=== PATIENT | female | born 1960 | race Caucasian/White ===

== ENCOUNTER 2017-12-27 07:25 | Day surgery (SDC) | payer MEDICARE ==
[2017-12-22 11:52] LABS: HEMATOCRIT 45.6 % (36.0-48.0); HEMOGLOBIN 14.6 g/dL (12-16); MCH 29.1 pg (26.0-34.0); MEAN PLATELET VOLUME 11.6 fL (7.4-10.4); RBC 5.01 10x6/uL (4.00-5.40); RDW 13.4 % (11.5-14.5); WBC 5.6 10x3/uL (4.8-10.8)
[2017-12-26 15:23] LABS: BASOPHILS 0.7 % (0-2); EOSINOPHILS 2.3 % (0-7); HEMATOCRIT 44.5 % (36.0-48.0); HEMOGLOBIN 14.3 g/dL (12-16); IMMATURE GRANULOCYTES 0.2 % (0-5); LYMPHOCYTES 33.8 % (15-50); MCH 29.8 pg (26.0-34.0); MCHC 32.1 g/dL (31.0-37.0); MCV 92.7 fL (80.0-100.0); MEAN PLATELET VOLUME 11.9 fL (7.4-10.4); MONOCYTES 7.7 % (2-11); NEUTROPHILS 55.3 % (40-80); PLATELET COUNT 197 10x3/uL (130-400); WBC 5.7 10x3/uL (4.8-10.8)
[2017-12-26 15:37] LABS: ANION GAP 14.7 mmol/L (8-16); CALCIUM 8.6 mg/dL (8.5-10.1); CARBON DIOXIDE 27.3 mmol/L (21.0-32.0); CREATININE - SERUM 0.9 mg/dL (0.6-1.3)
[~2017-12-27] VITALS: Ht 172.7 cm; Wt 99.8 kg
[~2017-12-27 07:25] MED LIST: MOBIC7.5 MG PO; NEXIUM40 MG PO; OXYBUTYNIN CHLOR5 MG PO; PROZAC40 MG PO; ZOCOR80 MG PO
[2017-12-27 08:34] VITALS: BP 191/104; Ht 172.7 cm; Wt 99.8 kg
== END 2017-12-27 14:57 | disposition home or self-care (01) ==
LOC: D.OPS 07:25 → D.PAN 09:30 → D.OPS 09:30
PROVIDERS: Anesthesiology; Orthopaedic Surgery
DX: M65.321 Trigger finger, right index finger (principal); Z01.812 Encounter for preprocedural laboratory examination

== ENCOUNTER → 2018-04-05 10:42 | Outpatient (CLI) | payer MEDICARE ==
[2017-12-27 08:34] VITALS: BMI 33.5
[~2018-04-05 10:42] MED LIST changes: +BAYER CHEWABLE81 MG PO; +DIOVAN320 MG PO; +HYDROCHLOROTH12.5 M1 PO; +PLAVIX75 MG PO
--- NOTE | 2018-04-10 10:45 | ST ---
PATIENT:WINTER MARTINEZ MEDICAL RECORD: [id number] SEX: F LOCATION:[facility] ORDER #: ADMISSION DATE: 04/05/18 AGE OF PATIENT: 57 REFERRING PHYSICIAN: INTERPRETING PHYSICIAN: CLARY ZAIDI MD DATE OF SERVICE: 04/05/2018 DIAGNOSES: 1. Angina. 2. Shortness of breath. 3. Hypertension. 4. Hyperlipidemia. The patient was exercised on standard Lexiscan protocol with 33 mCi of sestamibi injected at peak stress. Rest images were done previously with 11 mCi. FINDINGS: 1. Gated SPECT reveals decreased ejection fraction at 38% with mild LV dilatation. 2. SPECT imaging: Cardiolite was used as myocardial perfusion agent. There is definite reversible changes laterally. This includes basal, mid, and apical lateral segments. OVERALL IMPRESSION: This is an abnormal nuclear stress test, reversible changes laterally, cardiomyopathy with ejection fraction 38%, suggestive of coronary artery disease and possibly multivessel coronary artery disease. We will proceed with coronary angiography as a followup study. TRANSINT:[id number] Voice Confirmation ID: [id number] DOCUMENT ID: [id number] CLARY ZAIDI MD at 1045 CC: [id number] DICTATION DATE: 04/06/18 1023 EPIC ANALYST: 04/07/18 0007 DEP CLI 04/05/18 [place] [address] [place] [address]
== END | disposition home or self-care (01) ==
LOC: D.HCCARDIO 10:42
DX: R06.02 Shortness of breath (principal)

== ENCOUNTER 2018-04-13 08:31 | Outpatient (CLI) | payer MEDICARE ==
[~2018-04-13] VITALS: Ht 172.7 cm; Wt 113.6 kg
--- NOTE | ~2018-04-13 | HEMODYNAMI ---
PATIENT:WINTER MARTINEZ MEDICAL RECORD: [id number] : 58 LOCATION:[facility] ADMISSION DATE: 04/13/18 Generatedon:04/13/201813:17 Patient name: WINTER MARTINEZ Patient #: [id number] SSN: : [birth year] Date of study: 04/13/2018 Page: Of Hemodynamic Procedure Report Patient Data Patient Demographics Procedure consent was obtained First Name: WINTER Gender: Female Last Name: JUAN : 1960 [facility] Initial: ZUNILDA Age: 57 year(s) Patient #: [id number] Race: Unknown Additional ID: [id number] Contact details Address: [address] [place] [address] State: [place] City: [place] Zip code: [address] Past Medical History Allergies: No known allergies Admission Admission Data Admission Date: 04/13/2018 Admission Time: 8:31 Height (in.): 65 BSA: 2.16 (m2) Height (cm.): 165.1 BMI: 41.1 (kg/m2) Weight (lbs.): 247 Weight (kg.): 112.04 Lab Results Lab Result Date: 04/13/2018 Lab Result Time: 0:00 Biochemistry Name Units Result Min Max BUN mg/dl 29 --(----)-* 7 18 Creatinine mg/dl 1.1 --(--*-)-- 0.6 1.3 CBC Name Units Result Min Max Hematocrit % 45.5 --(-*--)-- 42 54 Hemoglobin g/dl 15 --(-*--)-- 13.5 17.5 Procedure Procedure Types Cath Procedure Diagnostic Procedure [facility] w/Coronaries FFR/IVUS Intra-Coronary IVUS Initial Sedation Charges Moderate Sedation up to 15 minutes PCI Procedure Coronary Stent Coronary Stent Initial Procedure Description Procedure Date Procedure Date: 04/13/2018 Procedure Start Time: 12:55 Procedure End Time: 13:15 Procedure Staff Name Function Javed Isabel MD Performing Physician Austyn Carrillo RT Monitor Blessing Lennon RT Scrub Chase Schulz RN Nurse Denis Cm RT Luggage Liner Procedure Data Cath Procedure Fluoroscopy Diagnostic fluoroscopy Total fluoroscopy Time: 6.2 time: 6.2 min min Diagnostic fluoroscopy Total fluoroscopy dose: dose: 1140 mGy 1140 mGy Contrast Material Contrast Material Type Amount (ml) Isovue 300 90 Entry Location Entry Primary Successful Side Size Upsize Upsize Entry Closure Jackson ccessful Closure Location (Fr) 1 (Fr) 2 (Fr) Remarks Device Remarks Radial Right 6 Fr Mechanical artery Short Compression Femoral Right 5 Fr 6 Fr Exoseal artery Short Estimated blood loss: 10 ml Diagnostic catheters Device Type Used For End Catheter Placement DIAGNOSTIC [place] 110cm 5 Procedure Fr catheter ([id number]) MULTIPACK Pigtail 5 Fr Procedure catheter MULTIPACK JL 4.0 5Fr Procedure catheter MULTIPACK 3DRC 5Fr Procedure catheter Procedure Complications No complications Procedure Medications Medication Administration Route Dosage Oxygen etCO2 Nasal cannula 2 l/min Lidocaine 2% added to field 20 Heparin Flush Bag added to field 2 bags (1000units/500ml NS) 0.9% NaCl I.V. 100 ml/hr Radial Cocktail I.A. 1 syringe (Verapomil 2mg/Nitro 400mcg/Heparin 1500units) Versed I.V. 2 mg Fentanyl I.V. 100 mcg Versed I.V. 2 mg Fentanyl I.V. 100 mcg Heparin Bolus I.V. 4000 units Integrilin (Bolus I.V. 10.2 ml 2mg/ml) Plavix P.O. 600 mg Versed I.V. 1 mg Hemodynamics Rest BSA: 2.16 (m2) HGB: 15 (g/dl) O2 Consumption: Estimated: 200.81 (ml/min) O2 Cons umption indexed: Estimated:92.97 (ml/min/m) Heart Rate: 64 (bpm) Snapshots Pre Cath Intra NCS Post Cath Vital Signs Time Heart Resp SPO2 etCO2 NIBP (mmHg) Rhythm Pain Sedation Rate (ipm) (%) (mmHg) Status Level (bpm) 12:42:25 54 10 100 0 160/86(137) NSR 0 (11) 10(A) , No pain 12:46:50 57 17 99 38.7 166/84(137) NSR 0 (11) 10(A) , No pain 12:51:10 59 23 94 28.2 120/81(95) NSR 0 (11) 10(A) , No pain 12:55:28 60 15 97 37.2 126/69(88) NSR 0 (11) 9(A) , No pain 12:59:36 63 12 95 32.7 104/74(90) NSR 0 (11) 9(A) , No pain 13:03:50 66 16 96 15.6 117/62(92) NSR 0 (11) 9(A) , No pain 13:08:08 64 17 97 37.9 113/65(96) NSR 0 (11) 9(A) , No pain 13:12:18 63 20 97 34.9 105/67(90) NSR 0 (11) 9(A) , No pain 13:16:32 62 17 99 35.6 104/65(84) NSR 0 (11) 10(A) , No pain Medications Time Medication Route Dose Verified Delivered Reason Not es Effectiveness by by 12:46:22 Oxygen etCO2 2 l/min Javed Stone used for Nasal Maame Schulz RN procedure cannula 12:46:29 Lidocaine 2% added 20ml Javed Burt for local to vial Maame Isabel MD anesthetic field 12:46:34 Heparin Flush added 2 bags Javed Burt used for Bag to Maame Isabel MD procedure (1000units/500ml field NS) 12:46:45 0.9% NaCl I.V. 100 Javed Stone Per physician ml/hr Maame Schulz RN 12:50:31 Versed I.V. 2 mg Javed Stone for sedation Maame Schulz RN 12:50:37 Fentanyl I.V. 100 mcg Javed Manjarrezie for sedation Maame Schulz RN 12:55:52 Radial Cocktail I.A. 1 Javed Javed for (Verapomil syringe Maame Isabel MD vasodilation 2mg/Nitro 400mcg/Heparin 1500units) 12:55:58 Versed I.V. 2 mg Javed Buffie for sedation Maame Schulz RN 12:56:01 Fentanyl I.V. 100 mcg Javed Stone for sedation Maame Schulz RN 13:00:53 Versed I.V. 1 mg Javed Manjarrezie for sedation Maame Schulz RN 13:07:36 Heparin Bolus I.V. 4000 Javed snow kamala ified units Maame Schulz RN anticoagulation with dr isabel 13:09:43 Integrilin I.V. 10.2 ml Javed snow was graeme (Bolus 2mg/ml) Maame Schulz RN antiplatelet 9.8 ml therapy of vial 13:13:29 Plavix P.O. 600 mg Javed Schulz RN antiplatelet therapy Procedure Log Time Note 12:27:53 Signed procedure consent form obtained from patient. 12:27:55 Time tracking: Regular hours (M-F 7:00 - 5:00) 12:27:59 Plan of Care:Hemodynamics will remain stable., Cardiac rhythm will remain stable., Comfort level will be maintained., Respiratory function will remain adequate., Patient/ family verbilizes understanding of procedure., Procedure tolerated without complication., Recovers from procedure without complications.. 12:28:01 Diagnostic Cath status Elective 12:28:24 Chase Schulz RN sent for patient. Start room use. 12:29:50 H&P Date Dictated: 03/28/2018 Within 30 days and on chart., H&P Addendum completed by physician on day of procedure. (MUST COMPLETE FOR ALL OUTPATIENTS). 12:29:55 Patient allergic to No known allergies 12:31:05 Lab Result : BUN 29 mg/dl 12:31:05 Lab Result : Creatinine 1.1 mg/dl 12:31:05 Lab Result : Hemoglobin 15 g/dl 12:31:05 Lab Result : Hematocrit 45.5 % 12:31:15 Patient Height : 65 inches 12:31:17 Patient Weight : 247 lbs 12:34:00 Patient received from Pre/Post Procedure Room to CCL 2 Alert and oriented. Tansferred to table in Supine position. 12:34:01 Warm blankets applied, and brooke hugger turned on for patient comfort. 12:34:02 Correct patient and procedure confirmed by team. 12:34:02 ECG and BP/O2 sat monitors applied to patient. 12:41:08 Vital chart was started 12:46:22 Oxygen 2 l/min etCO2 Nasal cannula was administered by Chase Schulz RN; used for procedure; 12:46:29 Lidocaine 2% 20ml vial added to field was administered by Javed Isabel MD; for local anesthetic; 12:46:34 Heparin Flush Bag (1000units/500ml NS) 2 bags added to field was administered by Javed Isabel MD; used for procedure; 12:46:45 0.9% NaCl 100 ml/hr I.V. was administered by Chase Schulz RN; Per physician; 12:47:23 Baseline sample Acquired. 12:47:26 Rhythm: sinus rhythm 12:47:28 Full Disclosure recording started 12:47:29 Pre-procedure instructions explained to patient. 12:47:29 Pre-op teaching completed and patient verbalized understanding. 12:47:31 Family in waiting room. 12:47:32 Patient NPO since Midnight. 12:47:34 Is the patient allergic to Iodine/contrast media? No. 12:47:36 Is patient on blood thinner?No 12:47:37 Patient diabetic? No. 12:47:40 Previous problem with sedation/anesthesia? No ? 12:47:40 Snore? Yes 12:47:41 Sleep apnea? Yes 12:47:42 Deviated septum? No 12:47:43 Opens mouth fully? Yes 12:47:44 Sticks out tongue? Yes 12:47:45 Airway obstruction? No ? 12:47:46 Dentures? No ? 12:47:49 Modified Adi's test Ulnar < 7 seconds 12:47:50 Patient pain scale 0/10 ?. 12:47:53 IV patent on arrival in right hand with 0.9% NaCl at [facility]. 12:47:55 Lab results completed and on chart. 12:47:57 Right Radial & Right Groin area was prepped with chlora-prep and draped in sterile fashion 12:47:58 Alarms reviewed by R. N. 12:47:58 Sharps counted by scrub and verified by R.N. 12:48:04 Use device set Radial Dx or PCI 12:48:05 ACIST Syringe (96821) opened to sterile field. 12:48:06 Medline Cath Pack ([id number]) opened to sterile field. 12:48:06 Bag Decanter () opened to sterile field. 12:48:07 ACIST Hand Control (44069) opened to sterile field. 12:48:07 ACIST Manifold (54011) opened to sterile field. 12:48:08 Tegaderm 4 x 4 (1626W) opened to sterile field. 12:48:08 MBrace Wrist Support ([id number]) opened to sterile field. 12:48:09 SHEATH 6FR Slender (65-1701) opened to sterile field. 12:48:10 DIAGNOSTIC WIRE .035 260cm J wire (143730) opened to sterile field. 12:48:18 Physician arrived 12:48:18 --------ALL STOP TIME OUT------ 12:48:18 Final Timeout: patient, procedure, and site verified with staff and physician. All members of the team are in agreement. 12:48:23 Right Radial & Right Groin site verified by team. 12:48:25 Fire Safety Assessment: A--An alcohol-based skin anteseptic being used preoperatively., C--Open oxygen or nitrous oxide is being used., D--An ESU, laser, or fiber-optic light is being used. 12:48:27 Physical assessment completed. ASA score P 2 - A patient with mild systemic disease as per Javed Isabel MD. 12:48:29 Sedation plan: IV Moderate Sedation Medication:Versed, Fentanyl 12:50:31 Versed 2 mg I.V. was administered by Chase Schulz RN; for sedation; 12:50:37 Fentanyl 100 mcg I.V. was administered by Chase Schulz RN; for sedation; 12:55:04 Procedure started. 12:55:07 Local anesthetic to right radial artery with Lidocaine 2% by Javed Isabel MD.INITIAL ACCESS ONLY 12:55:16 A 6 Fr Short sheath was inserted into the Right Radial artery 12:55:52 Radial Cocktail (Verapomil 2mg/Nitro 400mcg/Heparin 1500units) 1 syringe I.A. was administered by Javed Isabel MD; for vasodilation; 12:55:58 Versed 2 mg I.V. was administered by Chase Schulz RN; for sedation; 12:56:00 Local anesthetic to right femoral artery with Lidocaine 2% by Javed Isabel MD.ADDITIONAL ACCESS 12:56:01 Fentanyl 100 mcg I.V. was administered by Chase Schulz RN; for sedation; 12:56:09 A 5 Fr sheath was inserted into the Right Femoral artery 12:56:14 Sheath upsized to a 6 Fr Short. 12:56:21 6 Fr ebu 3.5 guide catheter was inserted over the wire 12:57:25 A DIAGNOSTIC [place] 110cm 5 Fr catheter ([id number]) was advanced over the wire and used for Procedure. 12:57:37 Catheter removed. unable to cannulate vessel. 12:57:52 SHEATH 5FR [place] (YSP017) opened to sterile field. 12:58:05 Use device set Multipack Set 12:58:06 DIAGNOSTIC Multipack 5Fr catheter set ([id number]) opened to sterile field. 12:58:47 A MULTIPACK Pigtail 5 Fr catheter was advanced over the wire and used for Procedure. 12:59:23 LV gram done using SOTO 12:59:25 Injector settings: Ml/sec: 10, Volume: 20, 12:59:27 LV hemodynamics recorded. 12:59:44 EF : 55 % 12:59:45 Catheter exchanged over wire. 12:59:50 A MULTIPACK JL 4.0 5Fr catheter was advanced over the wire and used for Procedure. 13:00:25 LCA angiography performed. 13:00:53 Versed 1 mg I.V. was administered by Chase Schulz RN; for sedation; 13:01:19 Catheter exchanged over wire. 13:01:48 A MULTIPACK 3DRC 5Fr catheter was advanced over the wire and used for Procedure. 13:02:12 CHOICE PT Extra Support 182cm wire ([id number]) opened to sterile field. 13:02:13 INFLATOR Merit BasixCompak (AU8668) opened to sterile field. 13:02:13 [place] IVUS Catheter (81160D) opened to sterile field. 13:02:17 SHEATH 6FR [place] (IFH184) opened to sterile field. 13:03:35 GUIDE 6FR EBU 3.5 catheter ([id number]) opened to sterile field. 13:03:40 Catheter removed. 13:04:26 choice pt es wire advanced. 13:04:28 Wire advanced across lesion. 13:05:02 TR BAND Standard ([id number]) opened to sterile field. 13:06:01 IVUS catheter advanced over wire. 13:06:07 IVUS pass to LAD lesion performed. 13:07:36 Heparin Bolus 4000 units I.V. was administered by Chase Schulz RN; for anticoagulation; verified with dr isabel 13:08:01 IVUS catheter removed over wire. 13:09:43 Integrilin (Bolus 2mg/ml) 10.2 ml I.V. was administered by Chase Schulz RN; for antiplatelet therapy; wasted 9.8 ml of vial 13:10:27 Place stent Inflation Number: 1 A INTEGRITY RX 3.5 x 26 stent ([id number]) was prepped and advanced across the Prox LAD. The stent was deployed at 15 ZINA for 0:10 (min:sec). 13:10:42 Stent catheter was removed intact over wire. 13:10:44 Wire removed. 13:10:44 Guide catheter removed. 13:10:59 EXOSEAL 6Fr (EX600) opened to sterile field. 13:11:07 Sheath removed intact; hemostasis achieved with Exoseal to the Right Femoral artery. 13:11:11 Sheath removed intact; hemostasis achieved with Mechanical Compression to the Right Radial artery. 13:11:13 Procedure ended.(Physican Out) 13:13:29 Plavix 600 mg P.O. was administered by Chase Schulz RN; for antiplatelet therapy; 13:14:09 Fluoroscopy time 06.20 minutes. 13:14:12 Flurop Dose total: 1140 13:14:13 Fluoroscopy dose: 1140 mGy 13:14:16 Contrast amount:Isovue 300 90ml. 13:14:17 Sharps counted by scrub and verified by R.N. 13:14:20 TR band inflated with 10cc of air. 13:14:20 Insertion/operative site no bleeding no hematoma. 13:14:22 Post-op/insertion site Right Femoral artery dressed using a 4 x 4 and Tegaderm. 13:14:30 Post right femoral artery:stable, soft, clean and dry 13:14:35 Post right radial artery:stable, soft, clean and dry 13:14:36 Post Procedure Pulses reassessed and unchanged 13:14:38 Post-procedure physical assessment completed. ASA score P 2 - A patient with mild systemic disease as per Javed Isabel MD. 13:14:39 Post procedure rhythm: unchanged. 13:14:41 Estimated blood loss: 10 ml 13:14:43 Post procedure instruction explained to patient.Patient verbalizes understanding. 13:14:43 Patient needs reinforcement of post procedure teaching. 13:15:09 Procedure type changed to Cath procedure, Diagnostic procedure, LHC, LHC w/Coronaries, FFR/IVUS, Intra-Coronary IVUS Initial, Sedation Charges, Moderate Sedation up to 15 minutes, PCI procedure, Coronary Stent, Coronary Stent Initial 13:15:38 Procedure and supply charges have been captured, reviewed, submitted and are correct. 13:15:40 Procedure Complication : No complications 13:15:41 Vital chart was stopped 13:15:42 See physician's report for complete and final results. 13:15:43 Report given to Pre/Post Procedure Room. 13:15:45 Patient transfered to Pre/Post Procedure Room with Stretcher. 13:15:46 Procedure ended. 13:15:46 Full Disclosure recording stopped 13:15:50 End room use (Document Last) Intervention Summary Intervention Notes Time ActionType Lesion and Equipment Action# Pressure Duration Attributes Used 13:10:27 Place stent Prox LAD INTEGRITY RX 1 15 00:10 3.5 x 26 stent ([id number]) Device Usage Item Name Manufacture Quantity Catalog Number Hospital Part Current Mini mal Lot# / Charge Number Stock Stock Serial# Code ACIST Acist 1 57821 127365 170553 425473 20 Syringe Medical (44264) Systems Inc Medline Cath Medline 1 [id number] 149456 84052 362763 5 Pack ([id number]) Bag Decanter Microtek 1 2002S 827675 68427 578385 5 (2001S) Medical Inc. ACIST Hand Acist 1 42471 818779 067891 846621 5 Control Medical (81055) Systems Inc ACIST Acist 1 12067 300128 508753 878711 5 Manifold Medical (95944) Systems Inc Tegaderm 4 x 3M 1 1626W 920106 859619 286004 5 4 (1626W) MBrace Wrist Advanced 1 140-0250-00 263408 18908 425822 5 Support Vascular ([id number]) Dynamics SHEATH 6FR Terumo 1 [id number] 103164 195004 438647 5 Slender (80-1060) DIAGNOSTIC St Evan 1 125183 450054 130699 034669 30 WIRE .035 260cm J wire (908096) DIAGNOSTIC Terumo 1 40-8103 541770 815932 826595 5 [place] 110cm 5 Fr catheter (157303) SHEATH 5FR Terumo 1 CJO122 229304 011060 448345 5 [place] (TYJ187) DIAGNOSTIC Cardinal 1 XR2969 150427 95677 740056 30 Multipack Health 5Fr catheter set (YR9571) MULTIPACK Cardinal 1 327541 5 Pigtail 5 Fr Health catheter MULTIPACK JL Cardinal 1 529789 5 4.0 5Fr Health catheter MULTIPACK Cardinal 1 350552 5 3DRC 5Fr Health catheter CHOICE PT Collins 1 [id number] 257811 057369 134447 5 Extra Scientific Support 182cm wire ([id number]) INFLATOR Merit 1 KC6815 016851 228668 372484 15 Merit Medical BasixCompak (UR6567) [place] 1 74092C 389029 572314 626883 8 [place] IVUS Catheter (59746W) SHEATH 6FR Terumo 1 VNF768 021748 901038 177703 40 [place] (IFT966) GUIDE 6FR Medtronic 1 [id number] 961968 81709 550880 3 EBU 3.5 catheter (OA3DTG12) INTEGRITY RX Medtronic 1 [id number] 423257 382483 003482 5 [id number] 3.5 x 26 stent ([id number]) EXOSEAL 6Fr Cardinal 1 EX600 878787 215681 387713 10 (EX600) Health TR BAND Terumo 1 BGM65-WVV 850891 922672 849690 40 Standard ([id number]) Signature Audit [place] Stage Time Signature Unsigned Intra-Procedure 04/13/2018 Austyn Carrillo 1:17:33 PM RT(R) Signatures Monitor : Austyn Carrillo RT Signature : Date : Time : [facility] [address] [place] [address]
[~2018-04-13 08:31] MED LIST changes: -BAYER CHEWABLE81 MG PO; -DIOVAN320 MG PO; -HYDROCHLOROTH12.5 M1 PO; -PLAVIX75 MG PO
[2018-04-13] MEDS ORDERED: DIOVAN320 MG PO (08:52)
[2018-04-13] MEDS ORDERED: HYDROCHLOROTH12.5 M1 PO (08:52)
[2018-04-13 09:10] VITALS: BP 151/79; Ht 172.7 cm; Wt 113.6 kg
[2018-04-13 09:25] LABS: BASOPHILS 0.9 % (0-2); EOSINOPHILS 3.5 % (0-7); HEMATOCRIT 46.5 % (36.0-48.0); IMMATURE GRANULOCYTES 1.7 % (0-5); LYMPHOCYTES 23.6 % (15-50); MCH 29.1 pg (26.0-34.0); MCHC 32.3 g/dL (31.0-37.0); MCV 90.1 fL (80.0-100.0); MEAN PLATELET VOLUME 10.7 fL (7.4-10.4); NEUTROPHILS 63.3 % (40-80); PLATELET COUNT 312 10x3/uL (130-400); RBC 5.16 10x6/uL (4.00-5.40); RDW 13.9 % (11.5-14.5); WBC 6.3 10x3/uL (4.8-10.8)
[2018-04-13 09:38] LABS: ANION GAP 16.9 mmol/L (8-16); CALCIUM 9.3 mg/dL (8.5-10.1); CARBON DIOXIDE 27.1 mmol/L (21.0-32.0); CREATININE - SERUM 1.1 mg/dL (0.6-1.3)
--- NOTE | 2018-04-13 13:30 | NUR ---
PT RECEIVED VIA STRETCHER FROM COLLISION TECHNICIAN FOR RECOVERY. PT SLEEPING BUT AROUSABLE TO VERBAL STIMULI. TR BAND TO R WRIST, DRESSING CDI NO BLEEDING OR HEMATOMA NOTED. 6 FR EXOCELE TO R GROIN, DRESSING CDI NO BLEEDING OR SWELLING NOTED. EXTREMITY WARM AND PINK, PEDAL PULSES PALPABLE. HR SINUS AMBROSIO RATE 55, BP 134/69, O2 SAT 100 ON 1L/NC. PT DENIES PAIN OR DISCOMFORT. FAMILY AT BEDSIDE, CALL LIGHT IN REACH. PT INSTRUCTED TO KEEP HEAD ON PILLOW AND LEG STRAIGHT, VERBALIZED UNDERSTANDING.
[2018-04-13] MEDS ORDERED: BAYER CHEWABLE81 MG PO (13:37)
[2018-04-13] MEDS ORDERED: PLAVIX75 MG PO (13:37)
--- NOTE | 2018-04-13 13:45 | NUR ---
PT RESTING QUIETLY, DENIES PAIN OR NAUSEA. REQUESTED SOMETHING TO DRINK, SPRITE GIVEN. R TR BAND IN PLACE, NO BLEEDING OR SWELLING NOTED. R GROIN DRESSING CDI NO BLEEDING OR SWELLING NOTED. CALL LIGHT IN REACH, AT BEDSIDE.
--- NOTE | 2018-04-13 14:15 | NUR ---
PT RESTING COMFORTABLY, TR BAND AND IMMOBILIZER IN PLACE NO BLEEDING OR SWELLING NOTED. R GROIN DRESSING CDI NO BLEEDING OR SWELLING NOTED. PEDAL PULSES PALPABLE. CALL LIGHT IN REACH, AT BEDSIDE.
--- NOTE | 2018-04-13 14:30 | NUR ---
NO CHANGE IN CONDITION, PT RESTING QUIETLY. TR BAND IN PLACE DRESSING CDI NO BLEEDING OR SWELLING NOTED. R GROIN DRESSING CDI NO BLEEDING OR SWELLING.
--- NOTE | 2018-04-13 15:12 | NUR ---
PT RESTING W EYES CLOSED, R GROIN DRESSING REMAINS CDI NO BLEEDING OR SWELLING NOTED, TR BAND IN PLACE NO BLEEDING OR SWELLING NOTED. PT DENIES PAIN OR NEEDS. REMAINS AT BEDSIDE, CALL LIGHT IN REACH
--- NOTE | 2018-04-13 15:30 | NUR ---
PT MORE AWAKE, DENIES PAIN OR DISCOMFORT, HR SINUS AMBROSIO RATE 55, BP 122/76. TR BAND IN PLACE NO BLEEDING OR HEMATOMA NOTED. R GROIN SOFT NO BLEEDING OR SWELLING NOTED. CALL LIGHT IN REACH, DENIES NEEDS AT THIS TIME
--- NOTE | 2018-04-13 15:58 | NUR ---
TR BAND IN PLACE, NO BLEEDING OR SWELLING NOTED. DRESSING CDI. R GROIN SOFT NO BLEEDING OR HEMATOMA NOTED. PT DENIES NEEDS OR DISCOMFORT. CALL LIGHT IN REACH. REPORT TO Alex HUMPHRIES RN TO ASSUME CARE.
--- NOTE | 2018-04-13 16:37 | NUR ---
4 CC AIR REMOVED FROM TR BAND WITH NO BLEEDING OR HEMATOMA NOTED. 6FR EXOSEAL R/GROIN IS CDI REPOSITIONED PATIENT TO SITTING WITH HOB UP 30 FOR COMFORT.SANDWICH AND SODA TO BEDSIDE
--- NOTE | 2018-04-13 16:55 | NUR ---
4 CC AIR REMOVED FROM TR BAND WITH NO BLEEDING NOTED. VERBAL AND WRITTEN DISCHARGE GONE OVER WITH PATIENT
--- NOTE | 2018-04-13 17:16 | NUR ---
PATIENT LEFT VIA WC TO PARKING FOR TRANSPORT HOME WITH . DRESSING TO R/WRIST CDI AND 6 FR EXOSEAL R/GROIN IS CDI. PATIENT DENIED PAIN OR NEEDS NO DISTRESS NOTED
--- NOTE | 2018-04-16 11:46 | OP ---
PATIENT NAME: WINTER MARTINEZ MEDICAL RECORD: [id number] :58 LOCATION:[facility] ADMISSION DATE: SURGEON: CLARY ZAIDI MD DATE OF OPERATION: 04/13/2018 PROCEDURES: 1. PTCA stent LAD. 2. Intravascular ultrasound. 3. Left heart catheterization. 4. Selective coronary angiography. 5. Left ventriculogram. INDICATION: Angina and coronary artery disease. PROCEDURE PERFORMED: After informed consent was obtained and after detailed explanation of risks, benefits as well as alternative therapies, the patient elected to proceed with angiogram and angioplasty. The right radial area was prepped and draped in normal sterile fashion. Right radial artery was cannulated via modified Seldinger technique with placement of 6-Syriac sheath. All catheters exchanged through this sheath. FINDINGS: Left ventriculogram was performed in a standard 30-degree SOTO view reveals good cardiac wall motion throughout all segments. Overall ejection fraction estimated 60%. SELECTIVE CORONARY ANGIOGRAPHY: 1. Left main is with no significant angiographic disease. 2. Left anterior descending has a greater than 70% stenosis confirmed by intravascular ultrasound. 3. Left circumflex has moderate irregularities, but no flow-limiting stenosis. 4. Right coronary has moderate irregularities, but no flow-limiting stenosis. PTCA STENT OF THE LAD: The stent used 3.5 x 26 mm Integrity. Result was 0% residual stenosis. OVERALL IMPRESSION: Successful percutaneous transluminal angioplasty stent of the left anterior descending going from greater than 70% initial stenosis confirmed by intravascular ultrasound to 0% residual. TRANSINT:[id number] Voice Confirmation ID: [id number] DOCUMENT ID: [id number] CLARY ZAIDI MD at 1146 CC: [id number] DICTATION DATE: 04/13/18 1319 ROUTING EQUIPMENT TENDER: 04/13/18 2241 DEP CLI 04/13/18 [place] [id number]
== END 2018-04-13 17:17 | disposition home or self-care (01) ==
LOC: D.CATH 08:31
PROVIDERS: Internal Medicine Interventional Cardiology
DX: I25.119 Atherosclerotic heart disease of native coronary artery with unspecified angina pectoris (principal); Z01.812 Encounter for preprocedural laboratory examination

== ENCOUNTER 2018-06-11 08:00 | Outpatient (CLI) | payer MEDICARE ==
[2018-04-13 09:10] VITALS: BMI 38.1
[~2018-06-11 08:00] MED LIST changes: +BAYER CHEWABLE81 MG PO; +DIOVAN320 MG PO; +HYDROCHLOROTH12.5 M1 PO; +PLAVIX75 MG PO
== END 2018-06-11 09:00 | disposition home or self-care (01) ==
LOC: D.MAMMO 08:00
PROVIDERS: ATTEND Clinical Nurse Specialist Adult Health
DX: Z12.31 Encounter for screening mammogram for malignant neoplasm of breast (principal)

== ENCOUNTER 2018-07-29 17:55 | Inpatient (IN) | payer MEDICARE ==
[2018-07-29 18:21] LABS: BASOPHILS 0.2 % (0-2); EOSINOPHILS 0.5 % (0-7); HEMATOCRIT 46.4 % (36.0-48.0); HEMOGLOBIN 15.2 g/dL (12-16); IMMATURE GRANULOCYTES 0.4 % (0-5); LYMPHOCYTES 12.1 % (15-50); MCH 29.5 pg (26.0-34.0); MCHC 32.8 g/dL (31.0-37.0); MCV 90.1 fL (80.0-100.0); MEAN PLATELET VOLUME 12.2 fL (7.4-10.4); MONOCYTES 5.5 % (2-11); NEUTROPHILS 81.3 % (40-80); RBC 5.15 10x6/uL (4.00-5.40); RDW 14.5 % (11.5-14.5); WBC 9.3 10x3/uL (4.8-10.8)
[2018-07-29 18:26] LABS: PLATELET COUNT 224 10x3/uL (130-400)
[2018-07-29 18:27] LABS: APTT 24.5 SECONDS (22.8-39.4); INR 1.03 (0.85-1.17)
[2018-07-29 18:32] LABS: ALKALINE PHOSPHATASE 71 U/L (46-116); ALT (SGPT) 43 U/L (10-68); BILIRUBIN - TOTAL 0.78 mg/dL (0.2-1.3); CALC OSMOLALITY 295 mosm/kg (275-300); CALCIUM 9.6 mg/dL (8.5-10.1); CARBON DIOXIDE 22.7 mmol/L (21.0-32.0); CHLORIDE - SERUM 107 mmol/L (98-107); CREATININE - SERUM 2.3 mg/dL (0.6-1.3); GLUCOSE 132 mg/dL (74-106); POTASSIUM - SERUM 3.9 mmol/L (3.5-5.1); PROTEIN - SERUM 7.5 g/dL (6.4-8.2); SODIUM 144 mmol/L (136-145); UREA NITROGEN 33 mg/dL (7-18); eGFR NON AFRICAN AMERICAN 23 mL/min (90-120)
[2018-07-29 18:44] LABS: CKMB 0.3 U/L (0.0-3.6); CREATINE KINASE 76 UL (21-215); MAGNESIUM - SERUM 2.1 mg/dL (1.8-2.4)
[2018-07-29 18:48] LABS: TROPONIN-I < 0.017 ng/mL (0.000-0.060)
--- NOTE | 2018-07-29 19:05 | NUR ---
PT RESTING ON BED. PT FAMILY AT BEDSIDE. PT AND FAMILY UPDATED ON PLAN OF CARE.
[2018-07-29 19:49] VITALS: BP 150/59
[2018-07-29 22:13] VITALS: BP 150/59; BMI 38.1
--- NOTE | 2018-07-29 22:21 | NUR ---
RECIEVED REPORT FROM HAZEL PADRON IN ER AT 1940. RECIEVED PT TO FLOOR AT 2013 VIA W/C. ACCOMPANIED BY STAFF AND FAMILY. TRANSFERED SELF TO BED. IV TO RT HAND WITH NS INFUSING AT 125/HR. NO REDNESS OR SWELLING TO SITE. ALERT AND ORIENTED X4. AMBULATES WITHOUT ASSIST. STATES SHE'S LEAGLLY BLIND. CAN SEE SHAPES AND COLORS. UNABLE TO SEE FINE DETAILS. DENIES ANY NEEDS AT THIS TIME.
[2018-07-29 23:18] VITALS: BP 149/60
[2018-07-30 04:14] VITALS: BP 155/58
[2018-07-30 06:30] LABS: ANION GAP 14.9 mmol/L (8-16); CALCIUM 8.5 mg/dL (8.5-10.1); CARBON DIOXIDE 24.9 mmol/L (21.0-32.0); CREATININE - SERUM 1.8 mg/dL (0.6-1.3); POTASSIUM - SERUM 3.8 mmol/L (3.5-5.1)
[2018-07-30 07:40] VITALS: BP 177/59
[2018-07-30 08:54] VITALS: BMI 38.1
[2018-07-30 11:29] VITALS: BP 152/62
[2018-07-30 15:28] VITALS: BP 190/92
--- NOTE | 2018-07-30 16:11 | NUR ---
ALERT AND ORIENTED X4. SITTING UP IN BED. BP-190/92 MANUALLY. NOTIFY JUNIOR RIBEIRO. PATIENT STATES, "WHEN MY BLOOD PRESSURE IS ELEVATED THAT'S WHEN I GET WEAK AND FEEL LIKE I'M GOING TO PASS OUT." ENCOURAGE TO CALL FOR ASSISTANCE WHEN OOB TO PREVENT FALL IF SYCOPAL EPISODE OCCURS. REFUSE SCDs. SINUS AMBROSIO 56 ON TELEMETRY. CONTINUE PLAN OF CARE AND SAFETY PRECAUTIONS.
[2018-07-30 19:55] VITALS: BP 171/65
--- NOTE | 2018-07-30 20:04 | NUR ---
RECIEVED UP IN BED WITH HOB ELEVATED AND TV ON. ALERT AND ORIENTED X4. UP AD RUTHY TO B/R. TELEMETRY IN PLACE. PIV TO RIGHT HAND WITH NS @50CC/HR. DENIES ANY NEEDS AT THIS TIME.
[2018-07-30 23:58] VITALS: BP 170/60
[2018-07-31 01:24] LABS: APPEARANCE CLEAR (CLEAR); BILIRUBIN NEGATIVE (NEGATIVE); COLOR YELLOW (YELLOW); GLUCOSE NEGATIVE (NEGATIVE); KETONE NEGATIVE (NEGATIVE); NITRITE NEGATIVE (NEGATIVE); PROTEIN NEGATIVE (NEGATIVE); UROBILINOGEN NORMAL (NORMAL)
[2018-07-31 04:06] VITALS: BP 162/53
[2018-07-31 06:00] LABS: BASOPHILS 0.5 % (0-2); EOSINOPHILS 3.2 % (0-7); HEMATOCRIT 40.5 % (36.0-48.0); HEMOGLOBIN 13.1 g/dL (12-16); LYMPHOCYTES 40.9 % (15-50); MCH 29.2 pg (26.0-34.0); MCHC 32.3 g/dL (31.0-37.0); MCV 90.4 fL (80.0-100.0); MEAN PLATELET VOLUME 11.6 fL (7.4-10.4); MONOCYTES 5.8 % (2-11); NEUTROPHILS 49.6 % (40-80); RBC 4.48 10x6/uL (4.00-5.40); RDW 13.9 % (11.5-14.5)
[2018-07-31 06:16] LABS: CALCIUM 8.4 mg/dL (8.5-10.1); CARBON DIOXIDE 27.9 mmol/L (21.0-32.0); POTASSIUM - SERUM 3.9 mmol/L (3.5-5.1)
[2018-07-31 06:17] LABS: CREATININE - SERUM 1.2 mg/dL (0.6-1.3)
[2018-07-31 06:31] LABS: PLATELET COUNT 171 10x3/uL (130-400); WBC 4.1 10x3/uL (4.8-10.8)
[2018-07-31 07:28] VITALS: BP 175/65
[2018-07-31 11:39] VITALS: BP 165/90
--- NOTE | 2018-07-31 14:53 | MORECARE ---
CASE MANAGEMENT DISCHARGE SUMMARY PATIENT: WINTER MARTINEZ UNIT: [id number] ADM DATE: 07/30/18 AGE: 58 : 58 SEX: F ROOM/BED: D.2136 AUTHOR: REANNA ALLEN PHYSICIAN: REFERRING PHYSICIAN: JEFF WINTERS MD DATE OF SERVICE: 07/31/18 Discharge Plan Patient Name: WINTER MARTINEZ [facility] [facility] 1960 Planned Disposition: Home Anticipated Discharge Date: 07/31/18 Discharge Date: Expected LOS: 1 Initial Reviewer: [email or web address] Initial Review Date: 07/31/2018 Generated: 07/31/18 3:53 pm Patient Name: WINTER MARTINEZ Page 01327 at 1453 All edits/amendments must be made on the electronic document DICTATION DATE: 07/31/181452 TIE IN HAND: MEGA 07/31/181452 RPT#: [id number] DC DATE: STATUS: ADM IN [facility] [address] [place] [address] END OF REPORT
--- NOTE | 2018-07-31 15:03 | MORECARE ---
CASE MANAGEMENT DISCHARGE SUMMARY PATIENT: WINTER MARTINEZ UNIT: [id number] ADM DATE: 07/30/18 AGE: 58 : 58 SEX: F ROOM/BED: D.7639 AUTHOR: ALEJANDRO,DOC PHYSICIAN: REFERRING PHYSICIAN: JEFF WINTERS MD DATE OF SERVICE: 07/31/18 Discharge Plan Patient Name: WINTER MARTINEZ Facility: [facility]:[place] : 1960 Planned Disposition: Home Anticipated Discharge Date: 07/31/18 Discharge Date: Expected LOS: 1 Initial Reviewer: [email or web address] Initial Review Date: 07/31/2018 Generated: 07/31/18 4:02 pm Comments DCP- Discharge Planning Updated by [email or web address]: Jeremy Grimm on 07/31/18 1:[address] Patient Name: WINTER MARTINEZ Admission Status: ER Accout number: [id number] Admission Date: 07-30-2018 : 1960 Admission Diagnosis: Attending: JEFF WINTERS Current LOS: 1 Anticipated DC Date: 07-31-2018 Planned Disposition: Home Primary Insurance: MEDICARE A & B Discharge Planning Comments: CM MET WITH PT IN ROOM TO DISCUSS DISCHARGE PLANNING AND NEEDS. PT REPORTS LIVING AT HOME INDEPENDENTLY WITH HER FRIEND. PT HAS CPAP FROM [facility]. PT HAS NO OUTSIDE SERVICES ASSISTING IN THE HOME. CM DISCUSSED AVAILABILITY OF HOME HEALTH, REHAB SERVICES AND MEDICAL EQUIPMENT. PT DENIES DISCHARGE NEEDS, REPORTS HER FRIEND WILL PICK HER UP FOR DISCHARGE HOME. PT PLANS TO DISCHARGE HOME WITH HER FRIEND WITH WHOM SHE LIVES. PT DENIES DISCHARGE NEEDS. CM TO FOLLOW AND ASSIST IF NEEDED. Unemployment Claims Adjudicator: Jeremy Grimm DCPIA - Discharge Planning Initial Assessment Updated by [email or web address]: Jeremy Grimm on 07/31/18 2:54 pm * Is the patient Alert and Oriented? Yes * How many steps to enter\exit or inside your home? RAMP * PCP DR. CALERO * Pharmacy [facility] [place] * Preadmission Environment Home with Family * ADLs Independent * Equipment CPAP * Other Equipment [facility] * List name and contact numbers for known caregivers / representatives who currently or will assist patient after discharge: ADRIANNA MASTON, FRIEND, [phone] * Verbal permission to speak to the caregivers and representatives has been obtained from the patient. N/A * Community resources currently utilized None * Please name any agencies selected above. NONE * Additional services required to return to the preadmission environment? No * Can the patient safely return to the preadmission environment? Yes * Has this patient been hospitalized within the prior 30 days at any hospital? No Last DP export: 07/31/18 1:53 pm Patient Name: WINTER MARTINEZ Page 13943 at 1503 All edits/amendments must be made on the electronic document DICTATION DATE: 07/31/18 1502 PET CARE ATTENDANT: DM 07/31/18 1502 RPT#: [id number] DC DATE: STATUS: ADM IN [facility] [address] [place] [address] END OF REPORT
[2018-07-31 15:34] VITALS: BP 180/68
--- NOTE | 2018-07-31 18:18 | NUR ---
ALERT AND ORIENTED X4. SITTING UP IN BED. FAMILY AT BEDSIDE. DISCHARGE INSTRUCTIONS GIVEN VERBALLY AND WRITTEN. DISCHARGE PAPERS SIGNED ON CHART. DC RT HAND IV TIP INTACT. ESCORT TO RIDE VIA WHEELCHAIR. REMAINS FREE FROM INJURY.
== END 2018-07-31 18:19 | disposition home or self-care (01) | DRG 641 ==
LOC: D.ER 17:55 → OBSVTIME 18:45 → D.M2 18:45
PROVIDERS: Emergency Medicine; Internal Medicine Nephrology; ADMIT Emergency Medicine; ATTEND Emergency Medicine
DX: E86.9 Volume depletion, unspecified (principal); N17.9 Acute kidney failure, unspecified; R73.9 Hyperglycemia, unspecified; I10 Essential (primary) hypertension; E78.5 Hyperlipidemia, unspecified; I25.10 Atherosclerotic heart disease of native coronary artery without angina pectoris; K21.9 Gastro-esophageal reflux disease without esophagitis; R55 Syncope and collapse; Z87.891 Personal history of nicotine dependence

== ENCOUNTER → 2018-08-07 10:18 | Outpatient (CLI) | payer MEDICARE ==
[2018-07-30 08:54] VITALS: BMI 38.1
--- NOTE | 2018-08-10 09:40 | ST ---
PATIENT:WINTER MARTINEZ MEDICAL RECORD: [id number] SEX: F LOCATION:[facility] ORDER #: ADMISSION DATE: 08/07/18 AGE OF PATIENT: 58 REFERRING PHYSICIAN: INTERPRETING PHYSICIAN: CLARY ZAIDI MD DATE OF SERVICE: 08/07/2018 PROCEDURE: Nuclear stress test. INDICATIONS: Angina, coronary artery disease, shortness of breath. The patient was exercised on standard Lexiscan protocol with 33 mCi of sestamibi injected at peak stress, 11 mCi were used previously for rest images. FINDINGS: Gated SPECT reveals preserved ejection fraction at 50% with good wall motioning and thickening and brightening throughout all segments. SPECT imaging: Cardiolite was used as myocardial perfusion agent. There is a large area of reversibility throughout the anterior and lateral segments including the septal segments as well. This includes the basal, mid, apical, anterior segments, apex itself, apical lateral, mid lateral, basal lateral segments as well as apical septal segments. The degree of reversibility is mild to moderate. The amount of myocardium involved is very large. OVERALL IMPRESSION: This is a high risk markedly abnormal nuclear stress test, large area of reversibility throughout the anterior, lateral, apical, and septal suggestive of hemodynamically significant coronary artery disease and possibly multivessel disease. We will proceed with coronary angiography as a followup study. TRANSINT:[id number] Voice Confirmation ID: [id number] DOCUMENT ID: [id number] CLARY ZAIDI MD at 0940 CC: NUNU CALERO [id number] DICTATION DATE: 08/07/18 1650 CHIEF WARDEN: 08/08/18 0420 DEP CLI 08/07/18 [place] [id number] [place] [id number]
== END | disposition home or self-care (01) ==
LOC: D.HCCARDIO 07-30 08:30
PROVIDERS: ATTEND Internal Medicine Interventional Cardiology
DX: I25.119 Atherosclerotic heart disease of native coronary artery with unspecified angina pectoris (principal)

== ENCOUNTER 2018-08-13 07:25 | Outpatient (CLI) | payer MEDICARE ==
[~2018-08-13] VITALS: Ht 172.7 cm; Wt 109.1 kg
--- NOTE | ~2018-08-13 | HEMODYNAMI ---
PATIENT:WINTER MARTINEZ MEDICAL RECORD: [id number] : 58 LOCATION:[facility] ADMISSION DATE: 08/13/18 Generatedon:08/13/201810:18 Patient name: WINTER MARTINEZ Patient #: [id number] SSN: : [birth year] Date of study: 08/13/2018 Page: Of Hemodynamic Procedure Report Patient Data Patient Demographics Procedure consent was obtained First Name: WINTER Gender: Female Last Name: JUAN : 1960 [facility] Initial: ZUNILDA Age: 58 year(s) Patient #: [id number] Race: Unknown Additional ID: [id number] Contact details [address]: [address] [place] [address] State: [place] City: [place] Zip code: [address] Past Medical History Allergies: No known allergies Admission Admission Data Admission Date: 08/13/2018 Admission Time: 7:25 Height (in.): 68 BSA: 2.21 (m2) Height (cm.): 172.72 BMI: 36.54 (kg/m2) Weight (lbs.): 240.31 Weight (kg.): 109 Lab Results Lab Result Date: 08/13/2018 Lab Result Time: 0:00 Biochemistry Name Units Result Min Max BUN mg/dl 21 --(----)-* 7 18 Creatinine mg/dl 1 --(--*-)-- 0.6 1.3 CBC Name Units Result Min Max Hematocrit % 41.2 -*(----)-- 42 54 Hemoglobin g/dl 13.7 --(*---)-- 13.5 17.5 Procedure Procedure Types Cath Procedure Diagnostic Procedure C [facility] w/Coronaries Procedure Description Procedure Date Procedure Date: 08/13/2018 Procedure Start Time: 10:05 Procedure End Time: 10:17 Procedure Staff Name Function Javed Isabel MD Performing Physician Austyn Carrillo RT Monitor Blessing Lennon RT Scrub Emanuel Cain RN Nurse Procedure Data Cath Procedure Fluoroscopy Diagnostic fluoroscopy Total fluoroscopy Time: 0.9 time: 0.9 min min Diagnostic fluoroscopy Total fluoroscopy dose: 476 dose: 476 mGy mGy Contrast Material Contrast Material Type Amount (ml) Isovue 370 46 Entry Location Entry Primary Successful Side Size Upsize Upsize Entry Closure Succes sful Closure Location (Fr) 1 (Fr) 2 (Fr) Remarks Device Remarks Femoral Right 6 Fr Exoseal artery Short Estimated blood loss: 5 ml Diagnostic catheters Device Type Used For End Catheter Placement MULTIPACK Pigtail 5 Fr Procedure catheter MULTIPACK JL 4.0 5Fr Procedure catheter MULTIPACK 3DRC 5Fr Procedure catheter Procedure Complications No complications Procedure Medications Medication Administration Route Dosage Oxygen etCO2 Nasal cannula 2 l/min Heparin Flush Bag added to field 2 bags (1000units/500ml NS) 0.9% NaCl I.V. 100 ml/hr Lidocaine 2% added to field 20 Fentanyl I.V. 50 mcg Versed I.V. 1 mg Fentanyl I.V. 50 mcg Versed I.V. 1 mg Fentanyl I.V. 50 mcg Hemodynamics Rest BSA: 2.21 (m2) HGB: 13.7 (g/dl) O2 Consumption: Estimated: 193.42 (ml/min) O2 Co nsumption indexed: Estimated:87.52 (ml/min/m) Heart Rate: 50 (bpm) Pressure Samples Time Site Value (mmHg) Purpose Heart Use Rate(bpm) 10:10 LV 103/12,20 Snapshot 53 Snapshots Pre Cath Intra NCS Post Cath Vital Signs Time Heart Resp SPO2 etCO2 NIBP (mmHg) Rhythm Pain Sedation Rate (ipm) (%) (mmHg) Status Level (bpm) 9:51:13 50 17 100 33.6 192/87(159) NSR 0 (11) 10(A) , No pain 9:56:10 51 16 100 32.1 183/78(142) NSR 0 (11) 10(A) , No pain 10:00:59 51 17 99 36.5 173/81(125) NSR 0 (11) 10(A) , No pain 10:05:45 52 16 99 32.8 170/77(131) NSR 0 (11) 10(A) , No pain 10:10:32 52 17 98 35.1 154/75(120) NSR 0 (11) 9(A) , No pain 10:15:11 54 16 98 36.6 157/80(131) NSR 0 (11) 9(A) , No pain Medications Time Medication Route Dose Verified Delivered Reason Notes Eff ectiveness by by 9:49:54 Oxygen etCO2 2 Javed Emanuel Per Nasal l/min Maame Cain RN physician cannula 9:50:02 Heparin Flush added 2 Javed Emanuel used for Bag to bags Maame Cain RN procedure (1000units/500ml field NS) 9:50:11 0.9% NaCl I.V. 100 Javed Emanuel Per ml/hr Maame Cain RN physician 9:50:20 Lidocaine 2% added 20ml Javed Emanuel for local to vial Maame Cain RN anesthetic field 10:02:50 Fentanyl I.V. 50 Javed Farleyy for mcg Maame Cain RN sedation 10:02:56 Versed I.V. 1 mg Javed Farleyy for Maame Cain RN sedation 10:05:15 Fentanyl I.V. 50 Javed Farleyy for mcg Maame Cain RN sedation 10:05:19 Versed I.V. 1 mg Javed Farleyy for Maame Cain RN sedation 10:07:36 Fentanyl I.V. 50 Javed Farleyy for mcg Maame Cain RN sedation Procedure Log Time Note 9:28:55 Signed procedure consent form obtained from patient. 9:28:57 Diagnostic Cath status Elective 9:28:57 Time tracking: Regular hours (M-F 7:00 - 5:00) 9:29:01 Plan of Care:Hemodynamics will remain stable., Cardiac rhythm will remain stable., Comfort level will be maintained., Respiratory function will remain adequate., Patient/ family verbilizes understanding of procedure., Procedure tolerated without complication., Recovers from procedure without complications.. 9:29:08 H&P Date Dictated: 07/19/2018 Within 30 days and on chart., H&P Addendum completed by physician on day of procedure. (MUST COMPLETE FOR ALL OUTPATIENTS). 9:29:10 Pre-procedure instructions explained to patient. 9:29:10 Pre-op teaching completed and patient verbalized understanding. 9:29:16 Patient allergic to No known allergies 9:30:12 Patient Weight : 240.31 lbs 9:30:23 Blessing Lennon RT(R) sent for patient. Start room use. 9:30:26 Patient Height : 68 inches 9::58 Lab Result : BUN 21 mg/dl 9::58 Lab Result : Creatinine 1 mg/dl 9::58 Lab Result : Hemoglobin 13.7 g/dl 9::58 Lab Result : Hematocrit 41.2 % 9:42:54 Patient received from Pre/Post Procedure Room to CCL 1 Alert and oriented. Tansferred to table in Supine position. 9:42:56 Warm blankets applied, and brooke hugger turned on for patient comfort. 9:42:56 Correct patient and procedure confirmed by team. 9:42:57 ECG and BP/O2 sat monitors applied to patient. 9:48:23 Vital chart was started 9:49:54 Oxygen 2 l/min etCO2 Nasal cannula was administered by Emanuel Cain RN; Per physician; 9:50:02 Heparin Flush Bag (1000units/500ml NS) 2 bags added to field was administered by Emanuel Cain RN; used for procedure; 9:50:11 0.9% NaCl 100 ml/hr I.V. was administered by Emanuel Cain RN; Per physician; 9:50:20 Lidocaine 2% 20ml vial added to field was administered by Emanuel Cain RN; for local anesthetic; 9:52:10 Baseline sample Acquired. 9:52:12 Rhythm: sinus rhythm 9:52:14 Full Disclosure recording started 9:52:18 Family in waiting room. 9:52:19 Patient NPO since Midnight. 9:52:21 Is the patient allergic to Iodine/contrast media? No. 9:52:22 Is patient on blood thinner?No 9:52:26 Patient diabetic? No. 9:52:28 Previous problem with sedation/anesthesia? No ? 9:52:30 Snore? Yes 9:52:31 Sleep apnea? Yes 9:52:32 Deviated septum? No 9:52:32 Opens mouth fully? Yes 9:52:33 Sticks out tongue? Yes 9:52:35 Airway obstruction? No ? 9:52:39 Dentures? Yes partial in tight 9:52:46 Pre procedure: right dorsailis pedis pulse 2+ Normal; easily identifiable; not easily obliterated 9:52:48 Patient pain scale 0/10 ?. 9:53:00 IV patent on arrival in left forearm with 0.9% NaCl at O. 9:53:01 Lab results completed and on chart. 9:53:05 Right groin area was prepped with chlora-prep and draped in sterile fashion 9:53:06 Alarms reviewed by R. N. 9:53:07 Sharps counted by scrub and verified by R.N. 9:53:12 Use device set Femoral Dx 9:53:13 Bag Decanter (2002S) opened to sterile field. 9:53:14 ACIST Syringe (47591) opened to sterile field. 9:53:15 Medline Cath Pack ([id number]) opened to sterile field. 9:53:16 ACIST Hand Control (17064) opened to sterile field. 9:53:16 ACIST Manifold (01316) opened to sterile field. 9:53:17 Tegaderm 4 x 4 (1626W) opened to sterile field. 9:53:18 SHEATH 5FR [place] (PHH757) opened to sterile field. 9:53:19 DIAGNOSTIC Multipack 5Fr catheter set ([id number]) opened to sterile field. 9:53:20 DIAGNOSTIC WIRE .035 260cm J wire (275517) opened to sterile field. 9:53:29 Physician paged 9:56:36 Zero performed for pressure channel P1 9:56:41 Zero performed for pressure channel P1 9:56:45 Zero performed for pressure channel P1 9:56:51 Zero performed for pressure channel P1 9:57:04 Zero performed for pressure channel P1 9:57:30 Zero performed for pressure channel P1 10:02:39 Physician arrived 10:02:40 --------ALL STOP TIME OUT------ 10:02:40 Final Timeout: patient, procedure, and site verified with staff and physician. All members of the team are in agreement. 10:02:43 Right groin site verified by team. 10:02:46 Maximum allowable Isovue 300 dose 300ml. Physician notified. (300ml for normal creatinines. For patients with creatinine of 1.7 or higher multiply weight(kg) x 5 divided by creatinine.) 10:02:50 Fentanyl 50 mcg I.V. was administered by Emanuel Cain RN; for sedation; 10:02:50 Fire Safety Assessment: A--An alcohol-based skin anteseptic being used preoperatively., C--Open oxygen or nitrous oxide is being used., D--An ESU, laser, or fiber-optic light is being used. 10:02:53 Physical assessment completed. ASA score P 2 - A patient with mild systemic disease as per Javed Isabel MD. 10::56 Versed 1 mg I.V. was administered by Emanuel Cain RN; for sedation; ::56 Sedation plan: IV Moderate Sedation Medication:Versed, Fentanyl 10:05:10 Procedure started. 10:05:13 Local anesthetic to right femoral artery with Lidocaine 2% by Javed Isabel MD.INITIAL ACCESS ONLY 10:05:15 Fentanyl 50 mcg I.V. was administered by Emanuel Cain RN; for sedation; 10:05:19 Versed 1 mg I.V. was administered by Emanuel Cain RN; for sedation; 10:05:50 A 6 Fr Short sheath was inserted into the Right Femoral artery 10:07:36 Fentanyl 50 mcg I.V. was administered by Emanuel Cain RN; for sedation; 10:10:14 A MULTIPACK Pigtail 5 Fr catheter was advanced over the wire and used for Procedure. 10:10:30 LV gram done using SOTO 10:10:32 Injector settings: Ml/sec: 10, Volume: 20, 10:10:34 LV hemodynamics recorded. 10:10:42 EF : 35 % 10:10:44 Catheter exchanged over wire. 10:10:53 A MULTIPACK JL 4.0 5Fr catheter was advanced over the wire and used for Procedure. 10:11:19 LCA angiography performed. 10:12:14 Catheter exchanged over wire. 10:12:19 A MULTIPACK 3DRC 5Fr catheter was advanced over the wire and used for Procedure. 10:13:09 RCA angiography performed. 10:13:12 Catheter removed. 10:13:13 EXOSEAL 5Fr (EX500) opened to sterile field. 10:13:29 Sheath removed intact; hemostasis achieved with Exoseal to the Right Femoral artery. 10:13:31 Procedure ended.(Physican Out) 10:14:43 Fluoroscopy time 00.90 minutes. 10:14:55 Fluoroscopy dose: 476 mGy 10:14:55 Flurop Dose total: 476 10:15:49 Contrast amount:Isovue 370 46ml. 10:16:12 Sharps counted by scrub and verified by R.N. 10:16:15 Insertion/operative site no bleeding no hematoma. 10:16:19 Post-op/insertion site Right Femoral artery dressed using a 4 x 4 and Tegaderm. 10:16:22 Post right femoral artery:stable, soft, clean and dry 10:16:24 Post Procedure Pulses reassessed and unchanged 10:16:26 Post-procedure physical assessment completed. ASA score P 2 - A patient with mild systemic disease as per Javed Isabel MD. 10:16:28 Post procedure rhythm: unchanged. 10:16:30 Estimated blood loss: 5 ml 10:16:31 Post procedure instruction explained to patient.Patient verbalizes understanding. 10:16:32 Patient needs reinforcement of post procedure teaching. 10:16:50 Procedure and supply charges have been captured, reviewed, submitted and are correct. 10:16:56 Procedure Complication : No complications 10:16:58 Vital chart was stopped 10:16:59 See physician's report for complete and final results. 10:17:00 Report given to Pre/Post Procedure Room. 10:17:02 Patient transfered to Pre/Post Procedure Room with Stretcher. 10:17:04 Procedure ended. 10:17:04 Full Disclosure recording stopped 10:17:12 End room use (Document Last) Device Usage Item Name Manufacture Quantity Catalog Hospital Part Current Minimal L ot# / Number Charge Number Stock Stock Serial# Code Bag Microtek 1 [id number] 21786 814852 5 Decanter Medical Inc. () ACIST Acist 1 82159 314661 470749 966688 20 Syringe Medical (17058) Systems Inc Medline Medline 1 [id number] 845759 60411 432559 5 Cath Pack ([id number]) ACIST Hand Acist 1 16044 889538 395774 600148 5 Control Medical (79817) Systems Inc ACIST Acist 1 76113 594271 815374 692673 5 Manifold Medical (44605) Systems Inc Tegaderm 4 3M 1 1626W 187559 391115 965449 5 x 4 (1626W) SHEATH 5FR Terumo 1 VGJ481 880364 363699 843704 5 [place] (QSU364) DIAGNOSTIC Cardinal 1 [id number] 962163 81849 576206 30 Multipack Health 5Fr catheter set (EA4884) DIAGNOSTIC St Evan 1 928017 953429 518391 970927 30 WIRE .035 260cm J wire (953389) MULTIPACK Cardinal 1 300381 5 Pigtail 5 Health Fr catheter MULTIPACK Cardinal 1 137597 5 JL 4.0 5Fr Health catheter MULTIPACK Cardinal 1 504247 5 3DRC 5Fr Health catheter EXOSEAL 5Fr Cardinal 1 EX500 504737 837339 154275 10 (EX500) Health Signature Audit [place] Stage Time Signature Unsigned Intra-Procedure 08/13/2018 Austyn Carrillo 10:17:58 AM RT(R) Signatures Monitor : Austyn Carrlilo RT Signature : Date : Time : [address] [address]
[2018-08-13 08:17] VITALS: BP 150/70; Ht 172.7 cm; Wt 109.1 kg
[2018-08-13 08:29] LABS: BASOPHILS 1.2 % (0-2); EOSINOPHILS 3.3 % (0-7); HEMATOCRIT 41.2 % (36.0-48.0); HEMOGLOBIN 13.7 g/dL (12-16); IMMATURE GRANULOCYTES 0.2 % (0-5); LYMPHOCYTES 30.7 % (15-50); MCH 29.8 pg (26.0-34.0); MCHC 33.3 g/dL (31.0-37.0); MCV 89.6 fL (80.0-100.0); MEAN PLATELET VOLUME 11.2 fL (7.4-10.4); MONOCYTES 8.5 % (2-11); NEUTROPHILS 56.1 % (40-80); PLATELET COUNT 193 10x3/uL (130-400); WBC 4.9 10x3/uL (4.8-10.8)
[2018-08-13 08:47] LABS: ANION GAP 12.8 mmol/L (8-16); CALCIUM 8.9 mg/dL (8.5-10.1); CARBON DIOXIDE 27.9 mmol/L (21.0-32.0); POTASSIUM - SERUM 3.7 mmol/L (3.5-5.1)
--- NOTE | 2018-08-13 10:24 | NUR ---
PT ARRIVED BY STRETCHER. PLACED ON MONITORS. ASSESSMENT COMPLETED. CALL LIGHT WITHIN REACH.
--- NOTE | 2018-08-13 10:40 | NUR ---
RIGHT GROIN DRESSING C/D/I. RIGHT PEDAL PULSE PALPABLE. VSS AT THIS TIME. CALL LIGHT WITHIN REACH. FAMILY AT BEDSIDE.
--- NOTE | 2018-08-13 11:10 | NUR ---
PT STILL SLEEPING. AROUSES TO VOICE. DENIES PAIN/NAUSEA. VSS. RIGHT GROIN DRESSING C/D/I. NO S/S OF HEMATOMA NOTED. FAMILY AT BEDSIDE
--- NOTE | 2018-08-13 11:40 | NUR ---
PT'S HEAD OF BED INC TO 30 DEGREES. TOLERATED WELL. RIGHT GROIN DRESSING C/D/I. NO S/S OF HEMATOMA NOTED. VSS. SET UP WITH SANDWICH TRAY AND DRINK. NO OTHER NEEDS AT THIS TIME.
--- NOTE | 2018-08-13 12:16 | NUR ---
DR. ZAIDI ROUNDED AND SPOKE WITH PT AND PT'S FAMILY.
--- NOTE | 2018-08-13 12:22 | NUR ---
LEFT HAND PIV D/C'D WITH CATH TIP INTACT. PT TOLERATED WELL. RIGHT GROIN DRESSING C/D/I. NO S/S OF HEMATOMA NOTED. PT INSTRUCTED TO GET UP AND DRESSED. PT'S FAMILY AT BEDSIDE TO ASSIST HER IN GETTING DRESSED. CALL LIGHT WITHIN REACH AND PT INSTRUCTED TO CALL IF SHE NEEDS ASSISTANCE.
--- NOTE | 2018-08-13 12:25 | NUR ---
PT AMBULATED TO RESTROOM. VOIDED WITHOUT DIFFICULTY. STEADY GAIT NOTED.
--- NOTE | 2018-08-13 12:30 | NUR ---
DISCUSSED DISCHARGE INSTRUCTIONS WITH PT AND PT'S FAMILY. THEY VOICED UNDERSTANDING. RIGHT GROIN DRESSIN C/D/I. NO S/S OF HEMATOMA NOTED. PT TAKEN OUT TO VEHICLE BY WHEELCHAIR. NO S/S OF DISTRESS NOTED. ALL BELONGINGS AND PAPERWORK IN HAND.
--- NOTE | 2018-08-15 11:19 | OP ---
PATIENT NAME: WINTER MARTINEZ MEDICAL RECORD: [id number] :58 LOCATION:[facility] ADMISSION DATE: SURGEON: CLARY ZAIDI MD DATE OF OPERATION: 08/13/2018 PROCEDURES: 1. Left heart catheterization. 2. Selective coronary angiography. 3. Left ventriculogram. INDICATION: Chest pain, coronary artery disease, and previous cardiac stenting. PROCEDURE IN DETAIL: After informed consent was obtained and after a detailed description of risks, benefits as well as alternative therapies, the patient elected to proceed with angiogram and heart catheterization. The right femoral area was prepped and draped in normal sterile fashion. Right femoral artery was cannulated via modified Seldinger technique with placement of 5-[place] sheath. All catheters exchanged through this sheath. FINDINGS: Left ventriculogram was performed in standard 30-degree SOTO view, reveals mild global hypokinesis throughout all segments. Overall ejection fraction is 45% to 50%. SELECTIVE CORONARY ANGIOGRAPHY: 1. Left main is with no significant angiographic disease. 2. Left anterior descending has previously placed stent. This is widely patent with no significant restenosis. No disease elsewise at the LAD or its branches. 3. Left circumflex has moderate irregularities, but no flow-limiting stenosis. 4. Right coronary artery has mild irregularities, but no flow-limiting stenosis. OVERALL IMPRESSION: Wide patency of the previously placed stent in the LAD. No significant disease elsewise. Symptomatology is most likely GI in etiology. No other cardiac workup treatment is necessary at this time. TRANSINT:[id number] Voice Confirmation ID: [id number] DOCUMENT ID: [id number] CLARY ZAIDI MD at 1119 CC: [id number] DICTATION DATE: 08/13/18 1017 [facility]: 08/13/18 1046 DEP CLI 08/13/18 [place] [id number]
== END 2018-08-13 12:30 | disposition home or self-care (01) ==
LOC: D.CATH 07:25
PROVIDERS: ATTEND Internal Medicine Interventional Cardiology
DX: I25.10 Atherosclerotic heart disease of native coronary artery without angina pectoris (principal); Z95.5 Presence of coronary angioplasty implant and graft; Z01.812 Encounter for preprocedural laboratory examination

== ENCOUNTER 2018-10-17 07:04 | Day surgery (SDC) | payer MEDICARE ==
[~2018-10-17] VITALS: Ht 172.7 cm; Wt 113.9 kg
[2018-10-17 07:34] LABS: HEMATOCRIT 43.1 % (36.0-48.0); HEMOGLOBIN 14.3 g/dL (12-16); MCH 30.1 pg (26.0-34.0); MCHC 33.2 g/dL (31.0-37.0); MCV 90.7 fL (80.0-100.0); MEAN PLATELET VOLUME 11.2 fL (7.4-10.4); RBC 4.75 10x6/uL (4.00-5.40); RDW 14.6 % (11.5-14.5); WBC 6.4 10x3/uL (4.8-10.8)
[2018-10-17 07:38] LABS: ANION GAP 11.8 mmol/L (8-16); CARBON DIOXIDE 29.8 mmol/L (21.0-32.0); CREATININE - SERUM 1.2 mg/dL (0.6-1.3); POTASSIUM - SERUM 3.6 mmol/L (3.5-5.1)
[2018-10-17 08:15] VITALS: BP 124/61; Ht 172.7 cm; Wt 113.9 kg
[2018-10-17] MEDS ORDERED: HYDROCODON-ACE1 EAC7 PO (09:45)
--- NOTE | 2018-10-17 11:35 | NUR ---
PT MORE AWAKE AND RECIEVED A FULL LIQ TRAY
--- NOTE | 2018-10-17 12:46 | NUR ---
1245 MEDICATED FOR MILD NAUSEA
--- NOTE | 2018-10-17 12:51 | NUR ---
1300 IV REMOVED AND DRESSING APPLIED AND PRESSURE HELD
== END 2018-10-17 13:18 | disposition home or self-care (01) ==
LOC: D.OPS 07:04 → D.PAN 08:15 → D.OPS 09:30
PROVIDERS: Anesthesiology; ATTEND Surgery
DX: K80.20 Calculus of gallbladder without cholecystitis without obstruction (principal)

== ENCOUNTER → 2020-05-18 12:33 | Outpatient (CLI) | payer MEDICARE ==
[2018-10-17 08:15] VITALS: BMI 38.2
[~2020-05-18 12:33] MED LIST changes: +HYDROCODON-ACE1 EAC7 PO
== END | disposition home or self-care (01) ==
LOC: D.US 12:33
PROVIDERS: ATTEND Thoracic Surgery (Cardiothoracic Vascular Surgery)
DX: I70.213 Atherosclerosis of native arteries of extremities with intermittent claudication, bilateral legs (principal)